=== PATIENT | female | born 1965 | race Asian ===

== ENCOUNTER 2020-07-05 09:55 | Outpatient (CLI) | payer BC | END 2020-07-05 23:43 | disposition home or self-care (01) | LOC: RAD 09:55 | PROVIDERS: ATTEND Nurse Practitioner Family | DX: M79.642 Pain in left hand (principal); M79.641 Pain in right hand; M79.672 Pain in left foot; M79.671 Pain in right foot ==

== ENCOUNTER 2020-07-23 10:08 | Outpatient (CLI) | payer BC | END 2020-07-23 19:32 | disposition home or self-care (01) | LOC: RAD 10:08 | PROVIDERS: ATTEND Nurse Practitioner Family | DX: E55.9 Vitamin D deficiency, unspecified (principal); M85.89 Other specified disorders of bone density and structure, multiple sites; Z79.899 Other long term (current) drug therapy ==

== ENCOUNTER 2020-09-27 10:03 | Outpatient (CLI) | payer BC | END 2020-09-27 19:36 | disposition home or self-care (01) | LOC: RAD 10:03 | PROVIDERS: ATTEND Family Medicine | DX: M54.5 Low back pain (principal); M25.561 Pain in right knee; M25.562 Pain in left knee ==

== ENCOUNTER 2021-12-25 13:22 | Emergency (ER) | payer OTHER ==
[~2021-12-25] VITALS: Ht 170.2 cm; Wt 83.9 kg
[2021-12-25 13:25] VITALS: TEMP 97.4
[2021-12-25 14:07] LABS: PLATELET COUNT 299 K/uL (152-353)
[2021-12-25 14:14] LABS: POTASSIUM 3.7 mmol/L (3.6-5.2)
[2021-12-25 15:46] VITALS: BP 122/86
== END 2021-12-25 15:47 | disposition home or self-care (01) ==
LOC: ED 13:22
PROVIDERS: Emergency Medicine Emergency Medical Services
DX: K52.89 Other specified noninfective gastroenteritis and colitis (principal)
CPT/HCPCS: 36415; 80048; 81002; 85027; 96360; 96374; 96375; 99284; J2270; J2405; Q9963